=== PATIENT | female | born 1960 | race Caucasian/White ===

== ENCOUNTER → 2016-04-30 | Outpatient (CLI) | payer BC ==
--- NOTE | 2016-05-01 09:06 | REP ---
Clinical: Lung cancer screening. Technique: Axial noncontrast low-dose screening technique. Findings: CT evaluation in lung windows only demonstrates a small 10 x 3 mm area of density in the lingula (images 52 - 55). Small areas of linear fibroatelectatic changes in the left lower lobe and right middle lobe are identified. No further area of consolidation, nodule or mass lesion appreciated. No pleural effusion. No pneumothorax. Impression: Lung RADS category III with small area of density in the lingula. Findings may warrant 6-month follow-up examination. Small areas of acute versus chronic fibroatelectatic change in the right middle lobe and left lower lobe. Signed by Kam Jorgensen MD 05/01/2016 08:57 A
== END ==
LOC: M RAD 14:17
PROVIDERS: ATTEND Internal Medicine Pulmonary Disease
DX: Z12.2 Encounter for screening for malignant neoplasm of respiratory organs (principal); F17.210 Nicotine dependence, cigarettes, uncomplicated; J44.9 Chronic obstructive pulmonary disease, unspecified

== ENCOUNTER → 2016-08-23 | Outpatient (CLI) | payer BC ==
--- NOTE | 2016-08-23 11:15 | REP ---
BILATERAL MAMMOGRAM: Bilateral mammogram performed in the MLO and CC projections and compared to multiple prior exams, most recent of which is 07/26/2015. Possible new 5 mm nodular opacity seen laterally in the right breast. This is not seen on the MLO view. There is no other evidence of a new mass or architectural distortion. No clustered microcalcifications are seen. IMPRESSION: ACR 0 incomplete. Possible new 5 mm nodular density, lateral right breast. Recommend spot compression view of the right breast in the CC projection. Other views and ultrasound may also be necessary. BI-RADS/ACR category 0 mammogram, incomplete. Additional imaging and/or prior images are needed before a final assessment can be assigned. This mammogram was interpreted with the aid of an FDA-approved computer-aided detection system. A. Negative x-ray reports should not delay biopsy if a dominant or clinically suspicious mass is present. B. Four to eight percent of cancers are not identified by x-ray. C. Adenosis and dense breasts may obscure an underlying neoplasm. The patient states that she/he has not had a clinical breast exam in over a year. The patient letter being requested is M0.
== END ==
LOC: M WHC 08:41
PROVIDERS: ATTEND Emergency Medicine
DX: R92.2 Inconclusive mammogram (principal)

== ENCOUNTER → 2016-08-30 | Outpatient (CLI) | payer BC ==
--- NOTE | 2016-08-30 15:18 | REP ---
Digital diagnostic unilateral right breast mammography with CAD and focused right breast sonography: History: Screening bilateral mammography from August 23, 2016 was BIRADS category 0, incomplete because of a possible neodensity in the lateral aspect of the right breast on CC view only. Diagnostic imaging was recommended. Comparison is also made with July 20, 2015 prior mammography. Mammographic findings: Magnified focal spot compression CC, MLO and true MLO views of the right breast confirm the presence of a sharply circumscribed nodule at the 9-o'clock to 10-o'clock position in the right breast. This measures 5 mm in greatest diameter. The right breast parenchyma is otherwise unchanged and unremarkable. Sonographic findings: The right breast is scanned from 8 o'clock to 12 o'clock through the upper outer quadrant. At 9 o'clock, there is a 0.5 x 0.6 x 0.3 cm mildly complex cyst 4.3 cm from the nipple. This is felt to account for the mammographic opacity. Impression: BIRADS category 2 benign right breast imaging. Repeat screening mammography recommended 1 year. BI-RADS/ACR category 2 mammogram. Benign finding(s). Routine annual screening mammography (for women over age 40). This mammogram was interpreted with the aid of an FDA-approved computer-aided detection system. The patient states that she/he has not had a clinical breast exam in over a year. The patient letter being requested is M1 Signed by Anuj Ortiz MD 08/30/2016 03:36 P
== END ==
LOC: M RAD 11:14
PROVIDERS: ATTEND Emergency Medicine
DX: Z12.31 Encounter for screening mammogram for malignant neoplasm of breast (principal)
CPT/HCPCS: 76642; G0206

== ENCOUNTER → 2016-10-29 | Outpatient (CLI) | payer BC ==
--- NOTE | 2016-10-29 12:24 | REP ---
CT of the chest without IV contrast: The study is a 6-month follow-up from the low-dose lung screening CT dated one 04/30/2016. On the comparison study there was a 10 x 3 mm focal density inferiorly in the lingula. This density is again identified today and is unchanged in size. However, this study today there are reformatted coronal and sagittal views which were not performed as part of the e comparison screening chest CT. On the reformatted sagittal views today this density has a curvilinear appearance compatible with parenchymal scarring. There is also a curvilinear density in the left lower lobe, unchanged from the prior study, also compatible with chronic parenchymal scarring. Additionally there is a curvilinear density in the medial segment of the right middle lobe compatible with chronic scarring, unchanged. There are no other nodules or masses. There are no infiltrates or effusions. There are upper normal size mediastinal nodes. The azygos node measures 10 mm short axis and aorticopulmonic window node measures 6 mm short axis. Additionally there is an enlarged paratracheal mediastinal node measuring 9 mm short axis. In the absence of IV contrast the study is insensitive for hilar lymph node enlargement. There is no axillary lymph. The unenhanced thoracic aorta is unremarkable. Cardiac size is normal. There is no pericardial effusion. The visualized upper abdominal contents are unremarkable. There is no adrenal mass. There are surgical clips in the gallbladder fossa. Impression: The nodular density at the inferior tip of the lingula identified on the screening chest CT dated 04/30/2016 has the appearance of a curvilinear parenchymal scar on the reconstructed sagittal views on the study today. Reconstructed sagittal views are not performed as a routine for the screening chest CT. There are curvilinear densities in the left lower lobe and in the right middle lobe also compatible with parenchymal scarring, also unchanged from the comparison study. No lung nodules or masses are identified on the study today. The findings on the study today converts at the density in the lingula to a category 1 finding. The probability of malignancy is less than 1%. The recommendation is for annual low-dose CT screening. Signed by Basilio Alberto MD 10/29/2016 12:16 P
== END ==
LOC: M RAD 11:09
PROVIDERS: ATTEND Internal Medicine Pulmonary Disease
DX: J44.9 Chronic obstructive pulmonary disease, unspecified (principal)

== ENCOUNTER → 2017-03-05 | Outpatient (CLI) | payer BC ==
[~2017-03-05] MED LIST: ATOR1TAB21 PO; CLON1TAB PO; ESTR62CR PV; FLUTISP; LOSA100T36 PO; PARO10TA3 PO; PROAAER10 INH; SYMB80INH INH; XYZA5TAB2 PO
--- NOTE | 2017-03-05 14:24 | REP ---
Clinical: Cough. Technique: PA and lateral. Comparison: 01/11/2014. Findings: Mediastinum and cardiac silhouette are normal. Lung pratt are clear without focal consolidation, effusion, or pneumothorax. Skeletal structures intact. Impression: No focal consolidation. Signed by Kam Jorgensen MD 03/05/2017 02:15 P
== END ==
LOC: M SMT 13:57
PROVIDERS: ATTEND Internal Medicine Pulmonary Disease
DX: E50.9 Vitamin A deficiency, unspecified (principal); R05 Cough; J44.9 Chronic obstructive pulmonary disease, unspecified

== ENCOUNTER → 2017-10-06 | Outpatient (CLI) | payer MEDICARE, BC | LOC: M WHC 09:30 | DX: Z12.31 Encounter for screening mammogram for malignant neoplasm of breast (principal); Z01.419 Encounter for gynecological examination (general) (routine) without abnormal findings (principal); Z92.89 Personal history of other medical treatment; Z12.12 Encounter for screening for malignant neoplasm of rectum | CPT/HCPCS: 77067 ==

== ENCOUNTER → 2018-01-26 | Outpatient (CLI) | payer MEDICARE, BC | LOC: M RAD 10:32 | DX: F17.218 Nicotine dependence, cigarettes, with other nicotine-induced disorders (principal) | CPT/HCPCS: G0297 ==

== ENCOUNTER → 2018-02-16 | Outpatient (REF) | payer MEDICARE, BC ==
[2018-02-16 14:21] LABS: ALBUMIN 4.1 GM/DL (3.2-5.2); ALBUMIN/GLOBULIN RATIO 1.24 (1.00-1.93); ALKALINE PHOSPHATASE 160 U/L (45-117); ALT/SGPT 40 U/L (12-78); ANION GAP 5 MEQ/L (8-16); AST/SGOT 19 U/L (7-37); BILIRUBIN,TOTAL 0.5 MG/DL (0.2-1.0); BLOOD UREA NITROGEN 10 MG/DL (7-18); CALCIUM LEVEL 9.6 MG/DL (8.5-10.1); CARBON DIOXIDE LEVEL 29 MEQ/L (21-32); CHLORIDE LEVEL 104 MEQ/L (98-107); CHOLESTEROL LEVEL 192 MG/DL (<200); CHOLESTEROL RISK RATIO 6.193 (<5); CREATININE FOR GFR 0.79 MG/DL (0.55-1.30); GLOMERULAR FILTRATION RATE > 60.0 (>51); GLUCOSE, FASTING 114 MG/DL (70-100); HDL CHOLESTEROL 31 MG/DL (>40); LDL CHOLESTEROL 120 MG/DL (<100); NON-HDL-C 161 MG/DL; POTASSIUM SERUM 4.6 MEQ/L (3.5-5.1); SODIUM LEVEL 138 MEQ/L (136-145); TOTAL PROTEIN 7.4 GM/DL (6.4-8.2); TRIGLYCERIDES LEVEL 207 MG/DL (<150)
[2018-02-16 17:56] LABS: ESTIMATED AVERAGE GLUCOSE 128 MG/DL (60-110); HEMOGLOBIN A1c 6.1 %
== END ==
LOC: M LABNEURO 10:52
DX: E78.2 Mixed hyperlipidemia (principal); I10 Essential (primary) hypertension; R73.01 Impaired fasting glucose
CPT/HCPCS: 80053

== ENCOUNTER → 2018-10-07 | Outpatient (CLI) | payer MEDICARE, BC ==
[~2018-10-07] MED LIST changes: -CLON1TAB PO; +CLON1TAB8 PO; -LOSA100T36 PO; +LOSA100T50 PO
--- NOTE | 2018-10-07 12:57 | REPMRS ---
Patient History The patient states she had a clinical breast exam in 09/2018. Family history of prostate cancer at age 50 or over in brother. Benign cyst aspiration of the left breast, April 29, 2011. Reductions of both breasts, 2004. Digital Woman Screen Mammo: October 07, 2018 - Exam #: [id number] Bilateral CC and MLO view(s) were taken. Technologist: oNris Steven, Technologist Prior study comparison: October 06, 2017, bilateral digital woman screen mammo performed at [facility]. August 30, 2016, right breast digital mammo diagnostic unilateral, performed at [facility]. FINDINGS: There are scattered fibroglandular densities. Bilateral screening digital mammogram with tomosynthesis: The patient states that there are no palpable abnormalities or other breast complaints. The patient's Tyrer-Cuzieck Lifetime Breast Carcinoma Risk is: Additionally, the study of 08/05/2013 is reviewed. There is no interval development of dominant mass, areas of architectural distortion, or clustered microcalcification typical of malignancy.There are occasional benign calcifications, unchanged. There are no additional findings on tomosynthesis. No significant changes when compared with prior studies. Assessment: BI-RADS/ACR category 2 mammogram. Benign Findings. Recommendation Routine screening mammogram in 1 year (for women over age 40). This mammogram was interpreted with the aid of an FDA-approved computer-aided dectection system. A. Negative x-ray reports should not delay biopsy if a dominant or clinically suspicious mass is present. B. Not all cancers are identified by mammography. C. Adenosis and dense breast may obscure an underlying neoplasm. Electronically Signed By: Basilio Alberto M.D. 10/07/18 [id number]
--- NOTE | 2018-10-08 14:54 | DEXA ---
AP SPINE L1 - L4 1.180 -0.1 1.0 LT FEMUR TOTAL 1.088 0.6 1.5 LT NECK 0.953 -0.6 0.6 RT FEMUR TOTAL 1.054 0.4 1.2 RT NECK 0.907 -0.9 0.3 TOTAL BODY TOTAL OTHER COMMENTS: Normal bone densitometry of the spine and hips. The density of the spine has decreased 3.4% since 08/05/2013. The density of the left hip has increased 2.3% since 08/05/2013. The density of the right hip has increased 5.4% since 08/05/2013. FOLLOW-UP: Recommendation for the next bone density exam: 5 years. JEM
== END ==
LOC: M WHC 09:57
PROVIDERS: ATTEND Physician Assistant
DX: Z01.419 Encounter for gynecological examination (general) (routine) without abnormal findings (principal); Z12.31 Encounter for screening mammogram for malignant neoplasm of breast; M89.9 Disorder of bone, unspecified; M94.9 Disorder of cartilage, unspecified; Z80.42 Family history of malignant neoplasm of prostate; Z86.018 Personal history of other benign neoplasm; Z98.890 Other specified postprocedural states; R92.1 Mammographic calcification found on diagnostic imaging of breast; Z12.12 Encounter for screening for malignant neoplasm of rectum
CPT/HCPCS: 77063; 77067; 77080; 82270; G0101

== ENCOUNTER → 2019-01-12 | Outpatient (REF) | payer MEDICARE, BC ==
[2019-01-12 14:39] LABS: ALBUMIN 3.9 GM/DL (3.2-5.2); ALT/SGPT 50 U/L (12-78); BILIRUBIN,TOTAL 0.4 MG/DL (0.2-1.0); BLOOD UREA NITROGEN 12 MG/DL (7-18); CALCIUM LEVEL 10.3 MG/DL (8.5-10.1); CARBON DIOXIDE LEVEL 27 MEQ/L (21-32); CHLORIDE LEVEL 105 MEQ/L (98-107); CHOLESTEROL LEVEL 189 MG/DL (<200); CHOLESTEROL RISK RATIO 4.846 (<5); CREATININE FOR GFR 0.82 MG/DL (0.55-1.30); GLOMERULAR FILTRATION RATE > 60.0 (>51); GLUCOSE, FASTING 93 MG/DL (70-100); HDL CHOLESTEROL 39 MG/DL (>40); LDL CHOLESTEROL 113 MG/DL (<100); NON-HDL-C 150 MG/DL; POTASSIUM SERUM 4.2 MEQ/L (3.5-5.1); SODIUM LEVEL 140 MEQ/L (136-145); TOTAL PROTEIN 7.1 GM/DL (6.4-8.2); TRIGLYCERIDES LEVEL 183 MG/DL (<150)
[2019-01-12 15:02] LABS: HEMOGLOBIN A1c 5.9 %
== END ==
LOC: M LABNEURO 10:33
PROVIDERS: ATTEND Physician Assistant
DX: R73.01 Impaired fasting glucose (principal); E78.2 Mixed hyperlipidemia

== ENCOUNTER → 2019-02-03 | Outpatient (CLI) | payer MEDICARE, BC ==
--- NOTE | 2019-02-03 13:48 | REP ---
REASON FOR EXAM: Tobacco abuse. All priors reviewed, the latest 01/26/2018. As per the protocol only lung window images were sent to the read station for interpretation. There is no significant change compared to the prior exam. No new abnormal nodules, masses, or opacities have developed. Grossly the mediastinum and pulmonary eliezer are stable. Grossly the imaged upper abdomen and imaged osseous structures are stable. IMPRESSION: No significant change. Lung-RADS category 1 exam. According to the revised Fleischner's Society criteria yearly CT screening is recommended. Electronically Signed by Huy Hernandez DO 02/03/2019 04:30 P
== END ==
LOC: M RAD 11:05
PROVIDERS: ATTEND Physician Assistant
DX: Z12.2 Encounter for screening for malignant neoplasm of respiratory organs (principal); F17.218 Nicotine dependence, cigarettes, with other nicotine-induced disorders

== ENCOUNTER → 2019-04-22 | Outpatient (REF) | payer MEDICARE, BC | LOC: M LAB REF 13:41 | PROVIDERS: ATTEND Physician Assistant | DX: R35.0 Frequency of micturition (principal) ==

== ENCOUNTER → 2019-07-13 | Outpatient (REF) | payer MEDICARE, BC ==
[2019-07-13 13:05] LABS: BASO # 0.1 10^3/uL (0.0-0.2); EOS # 0.6 10^3/uL (0.0-0.5); EOS % 5.7 % (0.0-3.0); HEMATOCRIT 47.9 % (36.0-47.0); HEMOGLOBIN 15.7 g/dl (12.0-15.5); LYMPH % 31.1 % (24.0-44.0); MEAN CORPUSCULAR HEMOGLOBIN 29.8 pg (27.0-33.0); MEAN CORPUSCULAR HGB CONC 32.8 g/dl (32.0-36.5); MEAN CORPUSCULAR VOLUME 90.9 fl (80.0-96.0); MONO # 0.4 10^3/uL (0.0-0.8); NEUTROPHILS # 5.6 10^3/uL (1.5-8.5); NEUTROPHILS % 57.2 % (36.0-66.0); PLATELET COUNT, AUTOMATED 259 10^3/uL (150-450); RED BLOOD COUNT 5.27 10^6/uL (4.00-5.40); WHITE BLOOD COUNT 9.7 10^3/uL (4.0-10.0)
[2019-07-13 13:31] LABS: HEMOGLOBIN A1c 6.6 %
[2019-07-13 13:33] LABS: ALBUMIN 3.4 GM/DL (3.2-5.2); ALT/SGPT 35 U/L (12-78); BILIRUBIN,TOTAL 0.4 MG/DL (0.2-1.0); BLOOD UREA NITROGEN 11 MG/DL (7-18); CALCIUM LEVEL 8.8 MG/DL (8.5-10.1); CARBON DIOXIDE LEVEL 28 MEQ/L (21-32); CHLORIDE LEVEL 105 MEQ/L (98-107); CREATININE FOR GFR 0.76 MG/DL (0.55-1.30); GLOMERULAR FILTRATION RATE > 60.0 (>51); GLUCOSE, FASTING 130 MG/DL (70-100); POTASSIUM SERUM 4.3 MEQ/L (3.5-5.1); SODIUM LEVEL 141 MEQ/L (136-145); TOTAL PROTEIN 6.9 GM/DL (6.4-8.2)
== END ==
LOC: M LABDRWAD 12:28
PROVIDERS: ATTEND Physician Assistant
DX: R73.01 Impaired fasting glucose (principal); J44.9 Chronic obstructive pulmonary disease, unspecified

== ENCOUNTER → 2020-01-20 | Outpatient (REF) | payer MEDICARE, BC ==
[2020-01-20 13:02] LABS: BASO # 0.1 10^3/uL (0.0-0.2); EOS # 0.4 10^3/uL (0.0-0.5); EOS % 4.8 % (0.0-3.0); HEMATOCRIT 48.6 % (36.0-47.0); HEMOGLOBIN 15.6 g/dl (12.0-15.5); LYMPH # 2.6 10^3/uL (1.5-5.0); LYMPH % 29.7 % (24.0-44.0); MEAN CORPUSCULAR HEMOGLOBIN 29.4 pg (27.0-33.0); MEAN CORPUSCULAR HGB CONC 32.1 g/dl (32.0-36.5); MEAN CORPUSCULAR VOLUME 91.7 fl (80.0-96.0); MONO # 0.5 10^3/uL (0.0-0.8); MONO % 5.7 % (0.0-5.0); NEUTROPHILS % 57.8 % (36.0-66.0); PLATELET COUNT, AUTOMATED 238 10^3/uL (150-450); WHITE BLOOD COUNT 8.7 10^3/uL (4.0-10.0)
[2020-01-20 13:18] LABS: HEMOGLOBIN A1c 6.3 %
[2020-01-20 13:32] LABS: ALBUMIN 3.6 GM/DL (3.2-5.2); ALT/SGPT 66 U/L (12-78); BILIRUBIN,TOTAL 0.4 MG/DL (0.2-1.0); BLOOD UREA NITROGEN 7 MG/DL (7-18); CALCIUM LEVEL 9.3 MG/DL (8.8-10.2); CARBON DIOXIDE LEVEL 28 MEQ/L (21-32); CHLORIDE LEVEL 107 MEQ/L (98-107); CHOLESTEROL LEVEL 164 MG/DL (<200); CHOLESTEROL RISK RATIO 4.969 (<5); CREATININE FOR GFR 0.79 MG/DL (0.55-1.30); GLOMERULAR FILTRATION RATE > 60.0 (>45); GLUCOSE, FASTING 101 MG/DL (70-100); HDL CHOLESTEROL 33 MG/DL (>40); LDL CHOLESTEROL 100 MG/DL (<100); NON-HDL-C 131 MG/DL; POTASSIUM SERUM 4.6 MEQ/L (3.5-5.1); SODIUM LEVEL 140 MEQ/L (136-145); TOTAL PROTEIN 6.8 GM/DL (6.4-8.2); TRIGLYCERIDES LEVEL 156 MG/DL (<150)
== END ==
LOC: M LABDRWAD 12:31
PROVIDERS: ATTEND Nurse Practitioner Family
DX: E78.2 Mixed hyperlipidemia (principal); R73.01 Impaired fasting glucose; G47.33 Obstructive sleep apnea (adult) (pediatric)

== ENCOUNTER → 2020-03-16 | Outpatient (CLI) | payer MEDICARE, BC ==
--- NOTE | 2020-03-16 12:21 | REP ---
INDICATION: ABN FINDING LUNG FIELD. COMPARISON: Comparison is made with multiple prior chest CTs, the most recent of which is from February 03, 2019 and the most remote of which is dated April 30, 2016.. TECHNIQUE: Helical scanning is acquired and 3 mm axial images are generated and reviewed. Coronal and sagittal MPR and coronal MIP images are included. 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 An area of curvilinear scarring is again noted in the inferior lingula. There are minimal areas of stable linear fibrosis in the left lower lobe as well. Associated with this is some mild bronchiectasis in the left lower lobe unchanged. No pulmonary nodule or mass lesion is observed. There are scattered normal sized pretracheal mediastinal lymph nodes which are all unchanged from the October 29, 2016 prior study. There is vascular calcification in the distribution of the coronary arteries bilaterally. No adrenal lesion is seen. There are clips in the gallbladder fossa consistent with previous cholecystectomy. A tiny accessory splenule is noted in the left upper quadrant. No bony abnormality is appreciated. IMPRESSION: No active cardiopulmonary disease. Stable fibrotic areas in the left base with mild left lower lobe bronchiectasis. Stable scattered mediastinal lymph nodes normal in size. <Electronically signed by Shahid Ortiz > 03/16/20 [id number]
== END ==
LOC: M RAD 09:49
PROVIDERS: ATTEND Physician Assistant
DX: R91.8 Other nonspecific abnormal finding of lung field (principal); J47.9 Bronchiectasis, uncomplicated; J84.10 Pulmonary fibrosis, unspecified

== ENCOUNTER → 2020-05-18 | Outpatient (REF) | payer MEDICARE, BC ==
[2020-05-18 14:47] LABS: ALBUMIN 3.8 GM/DL (3.2-5.2); ALT/SGPT 53 U/L (12-78); BILIRUBIN,TOTAL 0.4 MG/DL (0.2-1.0); BLOOD UREA NITROGEN 10 MG/DL (7-18); CALCIUM LEVEL 9.9 MG/DL (8.8-10.2); CARBON DIOXIDE LEVEL 29 MEQ/L (21-32); CHLORIDE LEVEL 105 MEQ/L (98-107); CHOLESTEROL LEVEL 196 MG/DL (<200); CHOLESTEROL RISK RATIO 6.125 (<5); CREATININE FOR GFR 0.84 MG/DL (0.55-1.30); GLOMERULAR FILTRATION RATE > 60.0 (>45); GLUCOSE, FASTING 101 MG/DL (70-100); HDL CHOLESTEROL 32 MG/DL (>40); LDL CHOLESTEROL 127 MG/DL (<100); NON-HDL-C 164 MG/DL; POTASSIUM SERUM 4.8 MEQ/L (3.5-5.1); SODIUM LEVEL 139 MEQ/L (136-145); TOTAL PROTEIN 7.1 GM/DL (6.4-8.2); TRIGLYCERIDES LEVEL 186 MG/DL (<150)
[2020-05-18 17:36] LABS: HEMOGLOBIN A1c 5.9 %
== END ==
LOC: M SFHCADAM 08:38
PROVIDERS: ATTEND Family Medicine
DX: Z00.00 Encounter for general adult medical examination without abnormal findings (principal); E11.69 Type 2 diabetes mellitus with other specified complication; E66.9 Obesity, unspecified

== ENCOUNTER → 2020-08-25 | Outpatient (REF) | payer MEDICARE, BC | LOC: M SFHCADAM 09:02 | PROVIDERS: ATTEND Family Medicine | DX: E78.2 Mixed hyperlipidemia (principal); E11.69 Type 2 diabetes mellitus with other specified complication ==

== ENCOUNTER → 2020-10-11 | Outpatient (CLI) | payer MEDICARE, BC ==
--- NOTE | 2020-10-11 11:20 | REPMRS ---
Patient History The patient states she had a clinical breast exam in 09/2020. Family history of prostate cancer at age 50 or over in brother. Benign cyst aspiration of the left breast, April 29, 2011. Reductions of both breasts, 2004. No Hormone Replacement Therapy Patient states no breast complaints today. Patient has signed MRS History Sheet. Digital Woman Screen Mammo: October 11, 2020 - Exam #: [id number] Bilateral CC and MLO view(s) were taken. Technologist: Amelia Conde, Technologist Prior study comparison: October 11, 2019, bilateral digital woman screen mammo performed at [facility]. October 07, 2018, bilateral digital woman screen mammo performed at [facility]. FINDINGS: There are scattered fibroglandular densities. Screening. Digital screening (2D) mammography was performed bilaterally in the CC and MLO projections. Additionally, breast tomosynthesis (3D mammography) was performed bilaterally in the CC and MLO projections. Todays exam was compared to the prior exam/exams. By history, the patient has no complaints of a palpable breast abnormality or other significant breast complaints. The breasts are unchanged in size and shape. There are no compa-soft tissue densities or spiculated masses. There is no internal architectural distortion. Once again, stable benign appearing calcifications are seen.There are no suspicious compa-calcific clusters. Skin thickening or nipple retraction is not present. IMPRESSION: BI-RADS Category 2- Benign Findings. There is no evidence of malignant alteration of the breasts. Followup examination recommended in one year. The Volpara volumetric breast density category is B, there are scattered areas of fibroglandular densities. This mammogram was read with the assistance of [employer],an FDA approved computer aided detection system for mammography. The lifetime Tyrer-Cuzick score is 6.5 % Negative x-ray reports should not delay surgical consultation if a dominant or clinically suspicious mass is present. Not all breast cancers can be identified by mammography. Therefore, we recommend that you continue to perform regular breast self-examination and physical examination and then promptly contact your physician of any concerns or changes. Adenosis and dense breasts may obscure an underlying neoplasm. Assessment: BI-RADS/ACR category 2 mammogram. Benign Findings. Recommendation Routine screening mammogram of both breasts in 1 year. Electronically Signed By: Huy Hernandez DO 10/11/20 [id number]
== END ==
LOC: M WHC 09:51
PROVIDERS: ATTEND Nurse Practitioner Women's Health
DX: Z12.31 Encounter for screening mammogram for malignant neoplasm of breast (principal); Z86.018 Personal history of other benign neoplasm; R92.1 Mammographic calcification found on diagnostic imaging of breast
CPT/HCPCS: 77063; 77067; G0463

== ENCOUNTER → 2020-11-27 | Outpatient (REF) | payer MEDICARE, BC ==
[2020-11-27 13:13] LABS: ALBUMIN 3.9 GM/DL (3.2-5.2); ALT/SGPT 61 U/L (12-78); BILIRUBIN,TOTAL 0.5 MG/DL (0.2-1.0); BLOOD UREA NITROGEN 7 MG/DL (7-18); CALCIUM LEVEL 9.3 MG/DL (8.8-10.2); CARBON DIOXIDE LEVEL 29 MEQ/L (21-32); CHLORIDE LEVEL 106 MEQ/L (98-107); CREATININE FOR GFR 0.76 MG/DL (0.55-1.30); GLOMERULAR FILTRATION RATE > 60.0 (>45); GLUCOSE, FASTING 102 MG/DL (70-100); POTASSIUM SERUM 4.4 MEQ/L (3.5-5.1); SODIUM LEVEL 139 MEQ/L (136-145); TOTAL PROTEIN 6.9 GM/DL (6.4-8.2)
[2020-11-27 14:04] LABS: HEMOGLOBIN A1c 6.2 %
== END ==
LOC: M SFHCADAM 10:31
PROVIDERS: ATTEND Family Medicine
DX: E11.69 Type 2 diabetes mellitus with other specified complication (principal)

== ENCOUNTER → 2021-02-02 | Outpatient (REF) | payer MEDICARE, BC ==
[2021-02-02 13:40] LABS: TOTAL 25(OH) VITAMIN D 23.2 NG/ML (30.0-100.0)
[2021-02-02 14:26] LABS: HEMOGLOBIN A1c 6.2 %
== END ==
LOC: M SFHCADAM 11:00
PROVIDERS: ATTEND Family Medicine
DX: R74.8 Abnormal levels of other serum enzymes (principal); Z13.21 Encounter for screening for nutritional disorder; E11.69 Type 2 diabetes mellitus with other specified complication

== ENCOUNTER → 2021-03-05 | Outpatient (REF) | payer MEDICARE, BC ==
[2021-03-05 13:48] LABS: APPEARANCE, URINE HAZY (CLEAR); BACTERIA, URINE AUTO 2+ (NEGATIVE); BILIRUBIN, URINE AUTO NEGATIVE (NEGATIVE); BLOOD, URINE BLOOD NEGATIVE (NEGATIVE); COLOR, URINE YELLOW (YELLOW); GLUCOSE, URINE (UA) AUTO NEGATIVE (NEGATIVE); KETONE, URINE AUTO NEGATIVE (NEGATIVE); LEUKOCYTE ESTERASE, URINE AUTO NEGATIVE (NEGATIVE); MUCUS, URINE SMALL (NEGATIVE); NITRITE, URINE AUTO NEGATIVE (NEGATIVE); PROTEIN, URINE AUTO NEGATIVE (NEGATIVE); RBC, URINE AUTO 0 /HPF (0-3); SPECIFIC GRAVITY URINE AUTO 1.004 (1.002-1.035); SQUAMOUS EPITHELIAL CELL UR AU 9 /HPF (0-6); UROBILINOGEN, URINE AUTO 0.2 mg/dL (0.0-2.0); WBC, URINE AUTO 2 /HPF (0-3)
== END ==
LOC: M SMT 12:46
PROVIDERS: ATTEND Urology
DX: N39.3 Stress incontinence (female) (male) (principal)

== ENCOUNTER → 2021-04-03 | Outpatient (CLI) | payer MEDICARE, BC ==
--- NOTE | 2021-04-03 13:48 | REP ---
INDICATION: LUNG CA SCREENING COMPARISON: 02/03/2019 TECHNIQUE: Axial noncontrast images from the thoracic inlet to the upper abdomen using low-dose lung screening technique (LDCT). FINDINGS: The lung pratt are well aerated and demonstrate minimal scattered stable chronic changes primarily at the left base/lingula and along the medial right middle lobe. No acute consolidation, suspicious nodule or mass. No effusion. No pneumothorax. Tracheobronchial tree is patent. IMPRESSION: Lung-RADS category 1. Stable chronic changes. Management recommendations include annual low-dose CT surveillance. <Electronically signed by Kam Jorgensen > 04/03/21 [id number]
== END ==
LOC: M RAD 11:06
PROVIDERS: ATTEND Physician Assistant
DX: Z12.2 Encounter for screening for malignant neoplasm of respiratory organs (principal); F17.218 Nicotine dependence, cigarettes, with other nicotine-induced disorders

== ENCOUNTER → 2021-04-16 | Outpatient (REF) | payer MEDICARE, BC ==
[2021-04-16 14:08] LABS: APPEARANCE, URINE CLEAR (CLEAR); BACTERIA, URINE AUTO 1+ (NEGATIVE); BILIRUBIN, URINE AUTO NEGATIVE (NEGATIVE); BLOOD, URINE BLOOD NEGATIVE (NEGATIVE); COLOR, URINE YELLOW (YELLOW); GLUCOSE, URINE (UA) AUTO NEGATIVE (NEGATIVE); KETONE, URINE AUTO NEGATIVE (NEGATIVE); LEUKOCYTE ESTERASE, URINE AUTO NEGATIVE (NEGATIVE); NITRITE, URINE AUTO NEGATIVE (NEGATIVE); PROTEIN, URINE AUTO NEGATIVE (NEGATIVE); RBC, URINE AUTO 1 /HPF (0-3); SPECIFIC GRAVITY URINE AUTO 1.006 (1.002-1.035); SQUAMOUS EPITHELIAL CELL UR AU 1 /HPF (0-6); UROBILINOGEN, URINE AUTO 0.2 mg/dL (0.0-2.0); WBC, URINE AUTO 0 /HPF (0-3)
== END ==
LOC: M SMT 13:00
PROVIDERS: ATTEND Urology
DX: N39.3 Stress incontinence (female) (male) (principal)

== ENCOUNTER → 2021-06-08 | Outpatient (CLI) | payer MEDICARE, BC ==
[~2021-06-08] MED LIST changes: +ATOR40TA75; +LOSA100T45 PO; -LOSA100T50 PO
[2021-06-08 12:28] LABS: HEMATOCRIT 48.2 % (36.0-47.0); HEMOGLOBIN 15.9 g/dl (12.0-15.5); MEAN CORPUSCULAR HEMOGLOBIN 30.1 pg (27.0-33.0); MEAN CORPUSCULAR VOLUME 91.1 fl (80.0-96.0); PLATELET COUNT, AUTOMATED 242 10^3/uL (150-450); RED BLOOD COUNT 5.29 10^6/uL (4.00-5.40); WHITE BLOOD COUNT 9.4 10^3/uL (4.0-10.0)
[2021-06-08 12:55] LABS: ALBUMIN 3.7 GM/DL (3.2-5.2); ALT/SGPT 52 U/L (12-78); BILIRUBIN,TOTAL 0.2 MG/DL (0.2-1.0); BLOOD UREA NITROGEN 8 MG/DL (7-18); CALCIUM LEVEL 9.3 MG/DL (8.8-10.2); CARBON DIOXIDE LEVEL 31 MEQ/L (21-32); CHLORIDE LEVEL 105 MEQ/L (98-107); CREATININE FOR GFR 0.81 MG/DL (0.55-1.30); GLOMERULAR FILTRATION RATE > 60.0 (>45); GLUCOSE, FASTING 145 MG/DL (70-100); POTASSIUM SERUM 4.3 MEQ/L (3.5-5.1); SODIUM LEVEL 139 MEQ/L (136-145); TOTAL PROTEIN 6.8 GM/DL (6.4-8.2)
== END ==
LOC: M ADAMS 09:41
PROVIDERS: ATTEND Urology
DX: N39.3 Stress incontinence (female) (male) (principal)

== ENCOUNTER → 2021-06-12 | Outpatient (REF) | payer MEDICARE, BC ==
[~2021-06-12] MED LIST changes: +BACTDSTA PO; +HYDR-3713 PO
[2021-06-12 13:29] LABS: APPEARANCE, URINE CLEAR (CLEAR); BACTERIA, URINE AUTO NEGATIVE (NEGATIVE); BILIRUBIN, URINE AUTO NEGATIVE (NEGATIVE); BLOOD, URINE BLOOD NEGATIVE (NEGATIVE); COLOR, URINE STRAW (YELLOW); GLUCOSE, URINE (UA) AUTO NEGATIVE (NEGATIVE); KETONE, URINE AUTO NEGATIVE (NEGATIVE); LEUKOCYTE ESTERASE, URINE AUTO NEGATIVE (NEGATIVE); NITRITE, URINE AUTO NEGATIVE (NEGATIVE); PROTEIN, URINE AUTO NEGATIVE (NEGATIVE); RBC, URINE AUTO 0 /HPF (0-3); SPECIFIC GRAVITY URINE AUTO 1.004 (1.002-1.035); SQUAMOUS EPITHELIAL CELL UR AU 0 /HPF (0-6); UROBILINOGEN, URINE AUTO 0.2 mg/dL (0.0-2.0); WBC, URINE AUTO 0 /HPF (0-3)
== END ==
LOC: M SMT 13:09
PROVIDERS: ATTEND Urology
DX: N39.3 Stress incontinence (female) (male) (principal)

== ENCOUNTER → 2021-06-13 | Outpatient (CLI) | payer MEDICARE, BC | LOC: M LABSMTC 11:14 | PROVIDERS: ATTEND Anesthesiology | DX: Z01.812 Encounter for preprocedural laboratory examination (principal); Z20.822 Contact with and (suspected) exposure to COVID-19 ==

== ENCOUNTER 2021-06-18 10:30 | Day surgery (SDC) | payer MEDICARE, BC ==
[~2021-06-18] VITALS: Ht 160 cm; Wt 97.1 kg
[~2021-06-18 10:30] MED LIST changes: -BACTDSTA PO; -HYDR-3713 PO; +ceFAZolin SOD 2 GM in IV 1 EA IV ONE
[2021-06-18] MEDS ORDERED: fentaNYL 250 MCG/5 ML INJECTION As Ordered ONE (12:22)
[2021-06-18] MEDS ORDERED: dexameTHASONE 4 MG/ML 1ML VIAL (J1100 PER 1MG) As Ordered ONE (12:22)
[2021-06-18] MEDS ORDERED: LIDOCAINE 2% 100MG/5ML SDV (FOR ANES.) As Ordered ONE (12:22)
[2021-06-18] MEDS ORDERED: propofoL 200 MG/20 ML VIAL As Ordered ONE (12:22)
[2021-06-18] MEDS ORDERED: MIDAZOLAM INJ 2MG/2ML VIAL (J2250 PER 1MG) As Ordered ONE (12:22)
[2021-06-18] MEDS ORDERED: ONDANSETRON 4MG/2ML VIAL As Ordered ONE (12:23)
[2021-06-18] MEDS ORDERED: LR 1,000 ML IV ONE (12:45)
[2021-06-18] MEDS ORDERED: LIDOCAINE W/EPINEPHRINE 1% 20ML VIAL As Ordered ONE (13:04)
[2021-06-18] MEDS ORDERED: ACETAMINOPHEN 1000MG 100ML IV BTL (OFIRMEV) (J0131 PER 10MG) As Ordered ONE (13:36)
[2021-06-18] MEDS ORDERED: ROCURONIUM BROMIDE 50 MG/5 ML VIAL As Ordered ONE ×2 (13:52→14:18)
[2021-06-18] MEDS ORDERED: ePHEDrine SULFATE 25 MG/5 ML(5MG/ML) SYRINGE As Ordered ONE (14:03)
[2021-06-18] MEDS ORDERED: SUGAMMADEX SODIUM 500 MG/5 ML VIAL (BRIDION) As Ordered ONE (14:18)
[2021-06-18] MEDS ORDERED: BACTDSTA PO (14:58)
[2021-06-18] MEDS ORDERED: HYDR-3713 PO (14:58)
[2021-06-18] MEDS ORDERED: fentaNYL 100 MCG/2 ML INJECTION IV PRN (15:20)
[2021-06-18] MEDS ORDERED: ONDANSETRON 4MG/2ML VIAL IV PRN (15:20)
[2021-06-18] MEDS ORDERED: PERCOCET 5MG/325MG TAB PO PRN (15:20)
[2021-06-18] MEDS ORDERED: LR 1,000 ML IV SCH (15:20)
[2021-06-18 16:23] VITALS: BP 128/62
[2021-06-19] MEDS ORDERED: UNRESOLVED CLARIFICATION ENTRY XX SCH (00:01)
== END 2021-06-18 16:10 | disposition home or self-care (01) ==
LOC: M SDC 10:30
PROVIDERS: ATTEND Urology
DX: N39.3 Stress incontinence (female) (male) (principal); I10 Essential (primary) hypertension; E78.2 Mixed hyperlipidemia; E11.9 Type 2 diabetes mellitus without complications; G47.33 Obstructive sleep apnea (adult) (pediatric); J44.9 Chronic obstructive pulmonary disease, unspecified; F17.218 Nicotine dependence, cigarettes, with other nicotine-induced disorders; Z88.0 Allergy status to penicillin; Z88.1 Allergy status to other antibiotic agents; Z79.899 Other long term (current) drug therapy; Z79.51 Long term (current) use of inhaled steroids
CPT/HCPCS: 57288; C1771; J0131; J0690; J1100; J2250; J2405; J3010

== ENCOUNTER → 2021-09-11 | Outpatient (REF) | payer MEDICARE, BC ==
[~2021-09-11] MED LIST changes: +BACTDSTA PO; +HYDR-3713 PO; -ceFAZolin SOD 2 GM in IV 1 EA IV ONE
[2021-09-11 13:06] LABS: APPEARANCE, URINE CLOUDY (CLEAR); BACTERIA, URINE AUTO 3+ (NEGATIVE); BILIRUBIN, URINE AUTO NEGATIVE (NEGATIVE); BLOOD, URINE BLOOD NEGATIVE (NEGATIVE); COLOR, URINE YELLOW (YELLOW); GLUCOSE, URINE (UA) AUTO NEGATIVE (NEGATIVE); KETONE, URINE AUTO NEGATIVE (NEGATIVE); LEUKOCYTE ESTERASE, URINE AUTO NEGATIVE (NEGATIVE); NITRITE, URINE AUTO NEGATIVE (NEGATIVE); PROTEIN, URINE AUTO NEGATIVE (NEGATIVE); RBC, URINE AUTO 0 /HPF (0-3); SPECIFIC GRAVITY URINE AUTO 1.009 (1.002-1.035); SQUAMOUS EPITHELIAL CELL UR AU 12 /HPF (0-6); UROBILINOGEN, URINE AUTO 0.2 mg/dL (0.0-2.0); WBC, URINE AUTO 2 /HPF (0-3)
[2021-09-11 13:33] LABS: ALBUMIN 3.5 GM/DL (3.2-5.2); ALT/SGPT 45 U/L (12-78); BILIRUBIN,TOTAL 0.4 MG/DL (0.2-1.0); BLOOD UREA NITROGEN 8 MG/DL (7-18); CARBON DIOXIDE LEVEL 26 MEQ/L (21-32); CHLORIDE LEVEL 107 MEQ/L (98-107); CHOLESTEROL LEVEL 150 MG/DL (<200); CHOLESTEROL RISK RATIO 4.838 (<5); CREATININE FOR GFR 0.85 MG/DL (0.55-1.30); GLOMERULAR FILTRATION RATE > 60.0 (>45); GLUCOSE, FASTING 100 MG/DL (70-100); HDL CHOLESTEROL 31 MG/DL (>40); LDL CHOLESTEROL 90 MG/DL (<100); NON-HDL-C 119 MG/DL; POTASSIUM SERUM 4.3 MEQ/L (3.5-5.1); SODIUM LEVEL 138 MEQ/L (136-145); TOTAL PROTEIN 6.6 GM/DL (6.4-8.2); TRIGLYCERIDES LEVEL 143 MG/DL (<150)
[2021-09-11 14:28] LABS: HEMOGLOBIN A1c 6.1 %
== END ==
LOC: M SFHCADAM 08:18
PROVIDERS: ATTEND Family Medicine
DX: E11.69 Type 2 diabetes mellitus with other specified complication (principal); N39.3 Stress incontinence (female) (male); I10 Essential (primary) hypertension; E78.2 Mixed hyperlipidemia

== ENCOUNTER → 2021-10-12 | Outpatient (CLI) | payer MEDICARE, BC | LOC: M WHC 08:12 | PROVIDERS: ATTEND Specialist | DX: Z12.31 Encounter for screening mammogram for malignant neoplasm of breast (principal) ==

== ENCOUNTER → 2021-10-12 | Outpatient (CLI) | payer MEDICARE, BC | LOC: M WHC 09:39 | PROVIDERS: ATTEND Specialist | DX: Z01.419 Encounter for gynecological examination (general) (routine) without abnormal findings (principal); Z12.31 Encounter for screening mammogram for malignant neoplasm of breast | CPT/HCPCS: 77063; 77067; G0101 ==

== ENCOUNTER → 2022-04-10 | Outpatient (CLI) | payer MEDICARE, BC | LOC: M RAD 10:29 | PROVIDERS: ATTEND Physician Assistant | DX: Z12.2 Encounter for screening for malignant neoplasm of respiratory organs (principal); F17.218 Nicotine dependence, cigarettes, with other nicotine-induced disorders; R91.1 Solitary pulmonary nodule; J98.4 Other disorders of lung ==

== ENCOUNTER → 2022-11-12 | Outpatient (CLI) | payer MEDICARE, BC ==
[~2022-11-12] MED LIST changes: +FLUT50SP17; -FLUTISP; -LOSA100T45 PO; +LOSA100T46 PO
== END ==
LOC: M RAD 13:02
PROVIDERS: ATTEND Physician Assistant
DX: R91.8 Other nonspecific abnormal finding of lung field (principal); I25.10 Atherosclerotic heart disease of native coronary artery without angina pectoris; J47.9 Bronchiectasis, uncomplicated

== ENCOUNTER → 2023-01-28 | Outpatient (CLI) | payer MEDICARE, BC | LOC: M WHC 08:45 | PROVIDERS: ATTEND Specialist | DX: Z12.31 Encounter for screening mammogram for malignant neoplasm of breast (principal) ==

== ENCOUNTER → 2023-12-05 | Outpatient (CLI) | payer MEDICARE, BC ==
[~2023-12-05] MED LIST changes: -FLUT50SP17; +FLUTISP
== END ==
LOC: M RAD 07:57
PROVIDERS: ATTEND Physician Assistant
DX: Z12.2 Encounter for screening for malignant neoplasm of respiratory organs (principal); F17.218 Nicotine dependence, cigarettes, with other nicotine-induced disorders; R91.8 Other nonspecific abnormal finding of lung field; I70.0 Atherosclerosis of aorta; I25.10 Atherosclerotic heart disease of native coronary artery without angina pectoris; J47.9 Bronchiectasis, uncomplicated

== ENCOUNTER → 2024-05-25 | Outpatient (CLI) | payer MEDICARE, BC | LOC: M WHC 08:48 | PROVIDERS: ATTEND Internal Medicine | DX: M85.89 Other specified disorders of bone density and structure, multiple sites (principal); Z12.31 Encounter for screening mammogram for malignant neoplasm of breast; R92.323 Mammographic fibroglandular density, bilateral breasts ==

== ENCOUNTER → 2024-05-25 | Outpatient (CLI) | payer MEDICARE, BC | LOC: M WHC 08:47 | PROVIDERS: ATTEND Specialist | DX: Z12.31 Encounter for screening mammogram for malignant neoplasm of breast (principal); R92.323 Mammographic fibroglandular density, bilateral breasts ==

== ENCOUNTER 2024-06-16 17:26 | Emergency (ER) | payer MEDICARE, BC ==
[~2024-06-16] VITALS: Ht 160 cm; Wt 85.3 kg
[2024-06-16 17:28] VITALS: BP 164/88; TEMP 97.6; O2SAT 99
== END 2024-06-16 21:59 | disposition left against medical advice (07) ==
LOC: M ED 17:26
DX: Z53.21 Procedure and treatment not carried out due to patient leaving prior to being seen by health care provider (principal)

== ENCOUNTER → 2024-07-30 | Outpatient (CLI) | payer MEDICARE, BC | LOC: M PLARAD 09:04 | PROVIDERS: ATTEND Physician Assistant | DX: M25.774 Osteophyte, right foot (principal) ==

== ENCOUNTER → 2024-08-19 | Day surgery (SDC) | payer MEDICARE, BC ==
[~2024-08-19] VITALS: Ht 160 cm; Wt 81.7 kg
[~2024-08-19] MED LIST changes: -ATOR40TA75; +ATOR40TA75 PO; +CLIN-250 PO; +FLUT1BLS17; +LIDOCAINE 2% 100MG/5ML SDV (FOR ANES.) As Ordered ONE; +propofoL 200 MG/20 ML VIAL As Ordered ONE
[2024-08-19 12:53] VITALS: TEMP 97.5
[2024-08-19 13:19] VITALS: BP 115/55; O2SAT 98
== END | disposition home or self-care (01) ==
LOC: M OPP 10:47
PROVIDERS: ATTEND Surgery
DX: D12.6 Benign neoplasm of colon, unspecified (principal); Z86.0100 Personal history of colon polyps, unspecified; K57.30 Diverticulosis of large intestine without perforation or abscess without bleeding; E78.00 Pure hypercholesterolemia, unspecified; J44.9 Chronic obstructive pulmonary disease, unspecified; F17.210 Nicotine dependence, cigarettes, uncomplicated; G47.33 Obstructive sleep apnea (adult) (pediatric); Z99.89 Dependence on other enabling machines and devices; Z88.0 Allergy status to penicillin; Z88.1 Allergy status to other antibiotic agents; Z79.51 Long term (current) use of inhaled steroids

== ENCOUNTER → 2025-01-03 | Outpatient (CLI) | payer MEDICARE, BC ==
[~2025-01-03] MED LIST changes: -LIDOCAINE 2% 100MG/5ML SDV (FOR ANES.) As Ordered ONE; -propofoL 200 MG/20 ML VIAL As Ordered ONE
== END ==
LOC: M RAD 09:43
PROVIDERS: ATTEND Physician Assistant
DX: Z12.2 Encounter for screening for malignant neoplasm of respiratory organs (principal); F17.218 Nicotine dependence, cigarettes, with other nicotine-induced disorders; J84.10 Pulmonary fibrosis, unspecified; I25.10 Atherosclerotic heart disease of native coronary artery without angina pectoris

== ENCOUNTER 2025-02-22 02:56 | Emergency (ER) | payer MEDICARE, BC ==
[~2025-02-22] VITALS: Ht 160 cm; Wt 81.8 kg
[2025-02-22] MEDS: MORPHINE 4 MG/ML 1 ML VIAL IV PRN (03:11)
[2025-02-22] MEDS: NITROGLYCERIN 0.4 MG SUBL TABLET SL PRN (03:11)
[2025-02-22 03:35] LABS: BASO # 0.1 10^3/uL (0.0-0.2); BASO % 0.7 % (0.0-1.0); EOS # 0.4 10^3/uL (0.0-0.5); EOS % 3.1 % (0.0-3.0); LYMPH # 2.0 10^3/uL (1.5-5.0); LYMPH % 17.7 % (24.0-44.0); MONO # 0.6 10^3/uL (0.0-0.8); MONO % 5.5 % (2.0-8.0); NEUTROPHILS # 8.1 10^3/uL (1.5-8.5); NEUTROPHILS % 72.5 % (36.0-66.0); PLATELET COUNT, AUTOMATED 211 10^3/uL (150-450)
[2025-02-22 03:43] LABS: CK-MB VALUE MASS 1.0 NG/ML (<3.6)
[2025-02-22 03:45] LABS: CALCIUM LEVEL 8.1 MG/DL (8.3-10.6); CARBON DIOXIDE LEVEL 28.0 MMOL/L (20-31); CHLORIDE LEVEL 109.0 MMOL/L (98-107); CPK CREATINE PHOSPHOKINASE 43.0 U/L (34-145); CREATININE FOR GFR 0.74 MG/DL (0.55-1.30); GLOMERULAR FILTRATION RATE 89.7 (>45); MB/CK RELATIVE INDEX 2.32 (< OR =4); POTASSIUM SERUM 4.0 MMOL/L (3.5-5.1); SODIUM LEVEL 144.0 MMOL/L (136-145)
[2025-02-22 03:47] LABS: FREE T4 1.12 NG/DL (0.89-1.76)
[2025-02-22 04:17] LABS: INR 0.93
[2025-02-22 04:45] LABS: CK-MB VALUE MASS 2.6 NG/ML (<3.6)
[2025-02-22 04:46] LABS: CPK CREATINE PHOSPHOKINASE 48.0 U/L (34-145); MB/CK RELATIVE INDEX 5.41 (< OR =4)
[2025-02-22] MEDS ORDERED: ISOVUE-370 76% 100 ML VIAL As Ordered ONE (06:13)
[2025-02-22] MEDS ORDERED: HEPARIN SOD 5000 UNITS/ML 1 ML VIAL/SYRINGE IV PRN (06:55)
[2025-02-22] MEDS: HEPARIN DRIP 25,000 UNITS in IV 1 EA IV SCH (07:03)
[2025-02-22 07:31] VITALS: TEMP 96.8
[2025-02-22] MEDS ORDERED: HOME MED LIST COMPLETE! XX SCH (07:35)
[2025-02-22] MEDS: NITROGLYCERIN 2% OINT 1 GM *U/D* PKT TOP ONE (08:11)
[2025-02-22 08:15] VITALS: BP 126/59; O2SAT 98
== END 2025-02-22 08:34 | disposition short-term general hospital (02) ==
LOC: M ED 02:56
DX: I21.4 Non-ST elevation (NSTEMI) myocardial infarction (principal); R91.8 Other nonspecific abnormal finding of lung field; I25.84 Coronary atherosclerosis due to calcified coronary lesion; Z95.5 Presence of coronary angioplasty implant and graft; I10 Essential (primary) hypertension; J44.9 Chronic obstructive pulmonary disease, unspecified; G47.33 Obstructive sleep apnea (adult) (pediatric); F17.200 Nicotine dependence, unspecified, uncomplicated; Z88.0 Allergy status to penicillin; Z88.1 Allergy status to other antibiotic agents; Z88.8 Allergy status to other drugs, medicaments and biological substances
CPT/HCPCS: 71045; 71275; 72125; 72128; 80048; 82550; 82553; 83880; 84439; 84443; 84484; 85025; 85610; 85730; 93005; 93041; 93971; 94760; 96365; 96375; 96376; 99285; Q9967

== ENCOUNTER → 2025-03-01 | Outpatient (REF) | payer MEDICARE, BC ==
[2025-03-01 13:46] LABS: IRON (FE) 22.0 UG/DL (50-170); PERCENT SATURATION 7.8 % (13.2-45.0)
== END ==
LOC: M LAB REF 12:19
PROVIDERS: ATTEND Internal Medicine
DX: I21.4 Non-ST elevation (NSTEMI) myocardial infarction (principal); K76.0 Fatty (change of) liver, not elsewhere classified